=== PATIENT | female | born 1940 | race Caucasian/White ===

== ENCOUNTER → 2017-07-15 | Outpatient (CLI) | payer MEDICARE, OTHER ==
[~2017-07-15] MED LIST: AMLO-99 PO; AMLO2.5T74 PO; ASPI-1471 PO; BENA10TA4 PO; BENA1TAB58 PO; BENA1TAB59 PO; BENA40TA51 PO; BENA40TA52 PO; CALC600T63 PO; CHOL200022 PO; EZE10 PO; FAMC500T18 PO; FERR159T PO; FERR28TA2 PO; GLIM2TAB43 PO; GLIM4TAB50 PO; GLUCOSAMINE 1,1 EACH PO; GLY5 PO; HYDR-2966 PO; HYDR-385 PO; IBUP-56 PO; INSU100I35 SQ; METF-420 PO; METO100T20 PO; METO50TA19 PO; NEED1DIS64 MC; NPH,100V12 SQ; PIOG45TA18 PO; POTASSIUM; ROSU10TA13 PO; SERT25TA90 PO; SIMV-49 PO; TRAM-420 PO; [UNRECOGNIZED DRUG - CODE] PO
--- NOTE | 2017-07-15 14:03 | RADIOLOGY IMAGING REPORT ---
FACILITY: [facility] - [place] PATIENT NAME: Neeta Sinclair : 1940 MR: [id number] V: [id number] EXAM DATE: ORDERING PHYSICIAN: DAVID LUCERO TECHNOLOGIST: Location: [facility] - [place] Patient: Neeta Sinclair : 1940 Visit/Account:[id number] Date of Sevice: 07/15/2017 DEXA Scan Clinical history: Postmenopausal estrogen deficiency. Comparison: None available. LUMBAR SPINE: The bone mineral density (BMD) measured from L1-L4 correlates with a Z-score 0.1 and a T-score of -0. 6 which is Normal as defined by the World Health Organization. The corresponding risk of fracture in the lumbar spine is 1-2 times increased compared with a young adult reference population. HIP: Bone mineral density (BMD) measured in the Left total hip region correlates with a Z-score -0.2 and a T-score of -1.2 which is osteopenia as defined by the World Health Organization. The corresponding risk of fracture in the hip is to 3 times increased compared with a young adult reference population. T score left femoral neck -2.1 Bone mineral density (BMD) measured in the Femoral Neck region measures 0.744 g/cm2. Impression: 1. Lumbar spine: Normal. 2. Left Hip: Osteopenia. 3. Femoral Neck: Bone Mineral Density is 0.744 g/cm2 The next DEXA scan of this patient should include the following sites: L1-L4 and the left hip. FRAX? WHO Fracture Risk Assessment Tool link: <http://www.shef.ac.uk/FRAX/tool.jsp?locationValue=9> PLEASE NOTE: 1) The World Health Organization defines low BMD as follows: T-score Normal > -1 Osteopenia < -1 and > -2.5 Osteoporosis < -2.5 without fractures Established osteoporosis < -2.5 with fractures 2) In general, you may wish to consider: Diagnosis Treatment Follow-up DEXA Normal BMD Prevention 2-3 years Osteopenia Prevention/therapy 1-2 years Osteoporosis Therapy Yearly 3) Fracture risk estimated from the T-score is more accurate for vertebral fractures (often spontane ous) than for hip fractures. Report Dictated By: Bhakti Atkins MD at 07/15/2017 1:49 PM Report E-Signed By: Bhakti Atkins MD at 07/15/2017 1:58 PM MARIANGELN:KAMRYN
--- NOTE | 2017-07-16 09:32 | RADIOLOGY IMAGING REPORT ---
FACILITY: [facility] - [place] PATIENT NAME: CHRISTPOHER MONTGOMERY : [id number] MR: [id number] V: [id number] EXAM DATE: ORDERING PHYSICIAN: DAVID LUCERO TECHNOLOGIST: Rocco Mensah EXAMINATION:TWO-DIMENSIONAL ECHOCARDIOGRAPH REASON:HEART MURMUR. 2D Measurements (normal values in centimeters) LV endLV endRV endVent.LV PostAorticLeftPercent DiastolicSystolicDiastolicSeptumWallRootAtriumShortening (3.5-5.7)(0.9-2.6)(0.6-1.1)(0.6-1.1)(2.0-3.7)(1.9-4.0)(25-35%) [id number]% STROKE VOLUME: 60 mL ESTIMATED EJECTION FRACTION:75% PARASTERNAL LONG AXIS: Overall left ventricular systolic function appears to be normal. The right ventricle is enlarged with the other chamber sizes being within normal ranges. Color examination of the mitral valve reveals a trace of mitral insufficiency. Color examination of the aortic valve revealed a trace of aortic insufficiency present. PARASTERNAL SHORT AXIS: Overall left ventricular function appears to be normal. The right ventricle is mildly enlarged. The other chamber sizes are normal. Color examination of the pulmonic valve reveals a trace of pulmonic insufficiency. Aortic valve is trileaflet in configuration and appears to open normally. Tricuspid valve also appears to open normally. There is a trace amount of tricuspid insufficiency noted. APICAL FOUR AND TWO CHAMBER: Normal left ventricular ejection fraction. The aortic valve area and mitral valve area both measure within normal range at 3.0 and 2.5 cm2 respectively. Left atrial and right atrial volumes are also measured within normal range at 24 and 16 mL/m2. Tricuspid regurgitation V-max is measured at 2.27 m/sec. SUBCOSTAL VIEW: No pericardial effusion was noted. No atrial septal or ventricular septal defects were appreciated. Doppler examination of the mitral valve in diastole does reveal the A wave greater than the E wave. OVERALL IMPRESSION: 1. Normal left ventricular ejection fraction of 75% with a grade 1/4 decrease in diastolic function. No wall motion abnormalities were noted. 2. Mild right ventricular enlargement, the other chamber sizes being normal. 3. A trileaflet aortic valve with no aortic stenosis and a trace of aortic insufficiency. 4. A trace of mitral and pulmonic insufficiency. 5. There is a trace of tricuspid insufficiency with estimated right ventricular systolic pressure within normal ranges at 24 mmHg. 6. A prominent pericardial fat pad but no pericardial effusion was noted. Dictated by: Teresa Casey M.D. on 07/15/2017 at 17:28 Transcribed by: CULLEN on 07/15/2017 at 19:01 Approved by: Teresa Casey M.D. on 07/16/2017 at 9:30 [facility]
--- NOTE | 2017-07-16 12:23 | RADIOLOGY IMAGING REPORT ---
FACILITY: [facility] - [place] PATIENT NAME: CHRISTOPHER MONTGOMERY : [id number] MR: [id number] V: [id number] EXAM DATE: ORDERING PHYSICIAN: DAVID LUCERO TECHNOLOGIST: Cely Mahoney PROCEDURE:BILATERAL DIGITAL SCREENING MAMMOGRAM WITH CAD ASSISTED INTERPRETATION AND 3D BREAST TOMOSYNTHESIS. COMPARISON:Prior mammograms dated 09/06/14, 08/17/13, 08/04/12 and 07/23/12. INDICATIONS:SCREENING. FINDINGS: A small amount of fibroglandular tissue is seen throughout the breasts. The parenchymal pattern has remained stable when allowing for difference in mammographic technique and patient positioning. There is no evidence of malignant appearing mass, malignant appearing calcification or other secondary sign of malignancy in either breast. DIAGNOSTIC CATEGORY 1--NEGATIVE. RECOMMENDATIONS: ROUTINE MAMMOGRAM AND CLINICAL EVALUATION. IMPRESSION: Bi-RADS 1: No significant abnormality is seen. Images were reviewed with R2CAD and 3D breast tomosynthesis. Dictated by: Bhakti Atkins M.D. on 07/15/2017 at 16:51 Transcribed by: CULLEN on 07/15/2017 at 18:53 Approved by: Bhakti Atkins M.D. on 07/16/2017 at 12:22 [facility]
== END ==
LOC: MAMO 01:50
PROVIDERS: ATTEND Emergency Medicine
DX: Z13.820 Encounter for screening for osteoporosis (principal); Z12.31 Encounter for screening mammogram for malignant neoplasm of breast; Z78.0 Asymptomatic menopausal state; M85.88 Other specified disorders of bone density and structure, other site; I51.7 Cardiomegaly; I35.1 Nonrheumatic aortic (valve) insufficiency; I07.1 Rheumatic tricuspid insufficiency
CPT/HCPCS: 77063; 77067; 77080; 93306

== ENCOUNTER → 2018-04-01 | Outpatient (CLI) | payer MEDICARE, OTHER ==
[~2018-04-01] MED LIST changes: +AMLO-113 PO; -AMLO-99 PO; -AMLO2.5T74 PO; +AMLO2.5T76 PO; -BENA10TA4 PO; +BENA10TA55 PO; -BENA40TA52 PO; +BENA40TA53 PO; -CHOL200022 PO; +CHOL200085 PO; +FLAS1EAC ASDIRECTED; +FLAS1KIT SUBQ; +METF-452 PO; -ROSU10TA13 PO; +ROSU10TA5 PO
== END ==
LOC: LAB 15:14
PROVIDERS: ATTEND Emergency Medicine
DX: Z02.9 Encounter for administrative examinations, unspecified (principal)

== ENCOUNTER → 2018-07-16 | Outpatient (CLI) | payer MEDICARE, OTHER ==
[~2018-07-16] MED LIST changes: -AMLO-113 PO; +AMLO-127 PO; -AMLO2.5T76 PO; +AMLO2.5T78 PO; +CHOL200022 PO; -CHOL200085 PO; +INSU200I4 SC
== END ==
LOC: LAB 14:02
PROVIDERS: ATTEND Emergency Medicine
DX: E83.52 Hypercalcemia (principal); R20.8 Other disturbances of skin sensation
CPT/HCPCS: 36415; 82310; 82607; 83970

== ENCOUNTER → 2018-07-21 | Outpatient (CLI) | payer MEDICARE, OTHER ==
[~2018-07-21] MED LIST changes: +BLOO-1511 MC; +CYAN100058 PO; +LANC-714 MC
--- NOTE | 2018-07-21 13:19 | RADIOLOGY IMAGING REPORT ---
FACILITY: [facility] - [place] PATIENT NAME: Neeta Sinclair : 1940 MR: [id number] V: [id number] EXAM DATE: ORDERING PHYSICIAN: DAVID LUCERO TECHNOLOGIST: Location: [facility] - [place] Patient: Neeta Sinclair : 1940 Visit/Account:[id number] Date of Sevice: 07/21/2018 Exam type: US SOFT TISSUE NON-SPECIFIC History: RUQ mass Comparison: None. Findings: The patient reports a small bulge along the lateral aspect of the right upper quadrant adjacent to th e ribs x1 month. In this location there is a small protuberance extending from the lateral musculatu re in this location measuring 5.8 mm x 3.2 mm x 5.7 mm.. This appears to be the same echogenicity of the adjacent muscle and could represent a small bulge within the muscle bundle. Other solid mass is not totally excluded. There is no increased vascularity noted. IMPRESSION: 1. There is a small soft tissue protuberance as described above extending from the lateral musculatu re in the location of patient's palpable finding. This is of the same echogenicity as the adjacent m uscle and could represent a small bulge within the muscle bundle. Other solid mass is not totally ex cluded Report Dictated By: Bhakti Atkins MD at 07/21/2018 1:12 PM Report E-Signed By: Bhakti Atkins MD at 07/21/2018 1:15 PM WSN:[id number]
== END ==
LOC: US 01:10
PROVIDERS: ATTEND Emergency Medicine
DX: R22.2 Localized swelling, mass and lump, trunk (principal)
CPT/HCPCS: 76999